=== PATIENT | male | born 1940 | race Asian ===

== ENCOUNTER 2017-07-13 12:36 | Inpatient (IN) | payer OTHER ==
[~2017-07-13] VITALS: Ht 167.6 cm; Wt 65.8 kg
[2017-07-13] VITALS (20 sets, daily range): BP systolic 116–202; BP diastolic 69–117; TEMP 97.2–98.1; Ht 167.6 cm; Wt 65.8 kg
--- NOTE | 2017-07-13 12:30 | NUR ---
RECEIVED REPORT FROM Lachelle MORIN RN IN [facility]
[~2017-07-13 12:36] MED LIST: CLON0.1T16 PO; HEPA5000 INJ; LABETALOL100 MG PO; LISI20TA11 PO; MICROZIDE12.5 MG PO; POTA20TA4 PO; TAMS0.4C PO
--- NOTE | 2017-07-13 13:06 | NUR ---
PT ARRIVED TO ICU BED 1 AT THIS TIME VIA WHEELCHAIR PER U STAFF. PT IS AWAKE, ALERT, AND ORIENTED. PT IS ABLE TO STATE HIS NAME AND BIRTHDAY. PT WAS PLACED IN A CLEAN GOWN AND ATTACHED TO ICU MONITORS. VITAL SIGNS AT THIS TIME: 142/89, RR - 18, HR - 74, TEMP - 97.2 AXILLARY, O2 SAT - 97% ON ROOM AIR. ADMISSION ASSESSMENT WAS DONE AT THIS TIME CHARTED. BED WAS LOCKED AND PLACED IN LOWEST POSITION WITH SIDE RAILS UP X2. WILL CONTINUE TO MONITOR.
--- NOTE | 2017-07-13 14:32 | NUR ---
PT GONE TO X-RAY AT THIS TIME
[2017-07-13 14:36] LABS: PLATELET COUNT 158 K/uL (142-355)
[2017-07-13 15:05] LABS: POTASSIUM 4.1 mmol/L (3.6-5.2)
[2017-07-13] MEDS ORDERED: OLANZAPINE5 M1 OR (15:08)
[2017-07-13] MEDS ORDERED: FIBER LAXATIV0.52 GM PO (15:10)
[2017-07-13] MEDS ORDERED: PANTOPRAZOLE 40MG TA PO (15:10)
[2017-07-13] MEDS ORDERED: AZIT250T3 PO (15:11)
[2017-07-13] MEDS ORDERED: FLUOXETINE20 MG PO (15:12)
[2017-07-13] MEDS ORDERED: CLON0.5T36 PO (15:12)
--- NOTE | 2017-07-13 15:35 | NUR ---
DR. WINSTON NOTIFIED OF PT'S LAB RESULTS
--- NOTE | 2017-07-13 16:04 | NUR ---
PT RESTING QUIETLY WITH EYES CLOSED.
--- NOTE | 2017-07-13 16:30 | NUR ---
NOTIFIED DR. WINSTON OF PT'S LAB AND STATUS AND QUESTION REGARDING ANY ORDERS HE WANTED. NO ORDERS WERE GIVEN.
--- NOTE | 2017-07-13 16:40 | NUR ---
Gay DÍAZ RN NOTIFIED OF PT'S LAB AND THAT NO ORDERS HAD BEEN GIVEN FROM DR. WINSTON FOR PATIENT.
--- NOTE | 2017-07-13 16:42 | NUR ---
PT SITTING UP IN BED EATING SUPPER TRAY
--- NOTE | 2017-07-13 17:04 | NUR ---
BP 192/107 PER MONITOR. MANUAL DONE AT THIS TIME BP IS 202/110
--- NOTE | 2017-07-13 17:09 | NUR ---
DR. WINSTON NOTIFIED OF PT'S INCREASED BP AT THIS TIME. NO ORDERS GIVEN.
--- NOTE | 2017-07-13 17:20 | NUR ---
DR. WINSTON AT BEDSIDE.
--- NOTE | 2017-07-13 17:57 | NUR ---
PT AWAKE AND ALERT WATCHING TV. NAD NOTED. PT VOICES NO COMPLAINTS. WILL CONTINUE TO MONITOR.
--- NOTE | 2017-07-13 20:09 | NUR ---
PT AWAKE WATCHING TV WITH NO S/S OF PAIN OR DISTRESS NOTED, IV LOCK INTACT TO L AC, RESP RATE NONLABORED, ON ROOM AIR, LUNGS CLEAR, RADIAL AND PEDAL PULSES INTACT, BS+, URINAL WITHIN PT'S REACH, HOTEL MANAGER IN USE, VITALS BEING MONITORED, WILL MONITOR CLOSELY, DENIES ANY PAIN OR NEEDS, RAILS UP, BED IN LOW POSITION.
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
[2017-07-14] VITALS (24 sets, daily range): BP systolic 94–168; BP diastolic 47–90; TEMP 97.9–99.5
--- NOTE | 2017-07-14 00:16 | NUR ---
PT RESTING QUIETLY IN BED WITH EYES CLOSED, NO S/S OF PAIN OR DISTRESS NOTED, IV LOCK INTACT, RESP RATE NONLABORED, URINAL WITHIN PT'S REACH, CHECKOUT OPERATOR IN USE, VITALS BEING MONITORED, WILL MONITOR CLOSELY, RAILS UP X3, BED IN LOW POSITION.
--- NOTE | 2017-07-14 02:10 | NUR ---
PT AROUSED TO USE URINAL, DENIES ANY PAIN OR PROBLEMS, NO S/S OF PAIN OR DISTRESS NOTED, IV LOCK INTACT, RESP RATE NONLABORED, ON ROOM AIR, PT NOW BACK IN BED SITTING UP WATCHING TV, BROUGHT PT SNACK OF CEREAL PER REQUEST. CAREER SERVICES MANAGER IN USE, VITALS BEING MONITORED, WILL MONITOR CLOSELY, RAILS UP, BED IN LOW POSITION, ENCOURAGED TO CALL NEEDED.
--- NOTE | 2017-07-14 06:00 | NUR ---
RESTING WITH EYES CLOSED, NO S/S OF PAIN OR DISTRESS NOTED, IV LOCK INTACT, ON ROOM AIR, RESP RATE NONLABORED, COUNTY MANAGER IN USE, WILL MONITOR CLOSELY, RAILS UP, BED IN LOW POSITION.
--- NOTE | 2017-07-14 07:57 | NUR ---
RECIEVED REPORT AM ASSESSEMENT DONE. PT ASSISTED UP AM CARE DONE. DR WINSTON VISITED. RECIEVED NEW ORDERS AM LABS DRAWN. PT UP IN BED FOR BREAKFAST FEEDING SELF. ASSIST NEEDED.
[2017-07-14 08:05] LABS: PLATELET COUNT 163 K/uL (142-355)
[2017-07-14 08:07] LABS: POTASSIUM 3.5 mmol/L (3.6-5.2)
--- NOTE | 2017-07-14 08:59 | NUR ---
EATING BREAKFAST SENDY WELL NO COMPLAINTS VOICED. RECIEVED AM PO MEDS.
--- NOTE | 2017-07-14 10:30 | NUR ---
UP TO BR ASSISTED BM. ASSISTED BACK TO BED AFTER WASH UP SENDY OK. NOTED PT STILL HAVING SOME WEAKNESS A LITTLE UNSTEADY. JENA GODINEZ CHECKROOM CHIEF VISITED CHECKED PT RECIEVED ORDERS.
--- NOTE | 2017-07-14 13:00 | NUR ---
ATE ALL LUNCH TRAY SENDY OK. NO COMPLAINTS, CONTINUES TO DENY PAIN. DR PEREZ VISITED. SPOKE WITH [facility] PT TO GO FOR CTA CHEST.
--- NOTE | 2017-07-14 17:38 | NUR ---
CALLED TO [facility] ON THEIR WAY TO GET PT. REPORT THAT THEY NEEDED 20 GA IN IV IN THE AC FOR SCAN, EXPLAINED THE NEED FOR IV TO PT. PATIENT AGREED STARTED 20 IV HEPLOCK RIGHT AC X 1 STICK. PT SENDY WELL. TO [facility] FOR CTA CHEST.
--- NOTE | 2017-07-14 17:43 | NUR ---
PT BACK TO ROOM SENDY PROCEDURE WELL. ASSIST TO BED SITTING UP IN BED SERVED DINNER TRAY. NO COMPLAINTS.
[2017-07-15] VITALS (12 sets, daily range): BP systolic 100–152; BP diastolic 56–86; TEMP 97.9–98.1
--- NOTE | 2017-07-15 07:43 | NUR ---
PT A LITTLE CONFUSED THIS AM REORIENTED TO UNIT, PT PULLED TELE OFF. STATES "I NEED TO MOVE OVER THERE" REORIENTED TO HOSPITAL AND ICU. WILL REMOVED WIRES TUBES, ASSIST TO CHAIR. DENIES PAIN.
[2017-07-15 08:16] LABS: PLATELET COUNT 165 K/uL (142-355)
[2017-07-15 08:48] LABS: POTASSIUM 3.8 mmol/L (3.6-5.2)
--- NOTE | 2017-07-15 09:44 | NUR ---
JENA GODINEZ SEAT COVERER VISITED CHECKED PT RECIEVED ORDERS. LABS DRAWN CHECK LACTIC ACID LEVEL. PT MAY BE RETURNING TO [facility] TODAY WAITING LAB RESULTS. ATE ALL BREAKFAST SENDY WELL. DENIES PAIN. RECIEVED AM MEDS.
[2017-07-15] MEDS ORDERED: HYDR25TA57 PO (11:36)
[2017-07-15] MEDS ORDERED: LISI20TA11 PO ×2 (11:36→15:17)
--- NOTE | 2017-07-15 12:14 | NUR ---
DR PEREZ VISITED CHECKED PT., RECIEVED NEW ORDERS, PT TO RETURN TO [facility] TODAY. REMOVED IV HEPLOCKS TO RIGHT AND LEFT AC. SITES CLEAN AND DRY. CATH INTACT NO REDNESS NO SWELLING NOTED. OFF TELE OFF MONITOR. UP OOB TO CHAIR WILL EAT LUNCH BEFORE GOING BACK TO [facility].
--- NOTE | 2017-07-15 13:50 | NUR ---
PT UP OOB ASSISTED TO W/C REVIEWED DISCHARGED ORDERS. PT VERBALIZED UNDERSTANDING. PT CLOTHS SHIRT, SHOES AND LOOSE CHANGE WITH PT DISCHARGED BACK TO [facility]. REPORT CALLED TO [facility], JOSÉ LUIS NURSE TAKING CALL. WILL BRING PT BACK OVER TO [facility]PT FOR ECHO. PT DISCHARGED FROM ICU.
== END 2017-07-15 13:50 | disposition other institution (70) | DRG 312 ==
LOC: ICU 12:36
PROVIDERS: Specialist; ADMIT Family Medicine
DX: R55 Syncope and collapse (principal); F33.3 Major depressive disorder, recurrent, severe with psychotic symptoms; I10 Essential (primary) hypertension; F41.9 Anxiety disorder, unspecified; N40.0 Benign prostatic hyperplasia without lower urinary tract symptoms; E87.6 Hypokalemia; K21.9 Gastro-esophageal reflux disease without esophagitis
CPT/HCPCS: 36415; 36591; 80048; 80053; 81000; 82550; 82553; 83605; 83735; 83880; 84100; 84484; 85027; 85379; 87040; 87077; 87081; 87185; 87880; 93005; 93306; Q9963